=== PATIENT | male | born 1965 | race Caucasian/White ===

== ENCOUNTER 2018-04-28 20:28 | Emergency (ER) | payer OTHER ==
[2018-04-28 22:43] LABS: APPEARANCE,URINE CLOUDY; BILIRUBIN,URINE NEGATIVE (NEGATIVE); GLUCOSE, URINE NEGATIVE (NEGATIVE); KETONES,URINE NEGATIVE (NEGATIVE); LEUKOCYTE ESTERASE,URINE NEGATIVE (NEGATIVE); NITRITE,URINE NEGATIVE (NEGATIVE); PROTEIN,URINE 100 mg/dL (NEGATIVE); URINE SPECIFIC GRAVITY 1.026; UROBILINOGEN,URINE NEGATIVE mg/dL (<2.0)
[2018-04-28 22:44] LABS: COLOR,URINE DARK YELLOW
--- NOTE | 2018-04-29 00:07 | ER Document Report ---
ED General - General Chief Complaint: Urinary Problem Stated Complaint: BLOOD PRESSURE ISSUE Time Seen by Provider: 04/28/18 21:59 Notes: Patient is a 52-year-old male with a past medical history of hypertension, currently off all medications, daily smoker who presents with gross hematuria that started approximately 12 hours ago and has been ongoing since that time. Patient denies any symptoms beyond gross hematuria. He does however note that he has had some mild left testicular pain intermittently with associated swelling intermittently for the past 1 year ever since he had a hydrocele repair done but that this is not new or different today. The gross hematuria has been present each time that he has urinated. He denies any flank tenderness, lower abdominal tenderness, fever, nausea or vomiting. Nothing improves or worsens his symptoms. No penile trauma. He has not seen his primary care physician regarding today's concerns. No history of kidney or bladder malignancy. TRAVEL OUTSIDE OF THE [place] IN LAST 30 DAYS: No - Related Data Allergies/Adverse Reactions: hydromorphone [From Dilaudid] Adverse Reaction (Verified 04/28/18 20:33) Vomiting Past Medical History - General Information source: Patient - Social History Smoking Status: Current Every Day Smoker Chew tobacco use (# tins/day): No Frequency of alcohol use: Rare Drug Abuse: None Lives with: Spouse/Significant other Family History: Reviewed & Not Pertinent Patient has suicidal ideation: No Patient has homicidal ideation: No - Past Medical History Cardiac Medical History: Reports: Hx Hypercholesterolemia Renal/ Medical History: Denies: Hx Peritoneal Dialysis GI Medical History: Reports: Hx Hiatal Hernia Review of Systems - Review of Systems Notes: Constitutional: Negative for fever. HENT: Negative for sore throat. Eyes: Negative for visual changes. Cardiovascular: Negative for chest pain. Respiratory: Negative for shortness of breath. Gastrointestinal: Negative for abdominal pain, vomiting or diarrhea. Genitourinary: Positive for gross hematuria Musculoskeletal: Negative for back pain. Skin: Negative for rash. Neurological: Negative for headaches, weakness or numbness. 10 point ROS negative except as marked above and in HPI. Physical Exam - Vital signs Vitals: Temp Pulse Resp BP Pulse Ox 98.0 F 94 16 204/121 H 98 04/28/18 21:00 04/28/18 21:00 04/28/18 21:00 04/28/18 21:00 04/28/18 21:00 Interpretation: Hypertensive - Patient is off all medications currently and has a known history of essential hypertension Notes: PHYSICAL EXAMINATION: GENERAL: Well-appearing, well-nourished and in no acute distress. HEAD: Atraumatic, normocephalic. EYES: Pupils equal round and reactive to light, extraocular movements intact, sclera anicteric, conjunctiva are normal. ENT: nares patent, oropharynx clear without exudates. Moist mucous membranes. NECK: Normal range of motion, supple without lymphadenopathy LUNGS: Breath sounds clear to auscultation bilaterally and equal. No wheezes rales or rhonchi. HEART: Regular rate and rhythm without murmurs : No penile lesions or active bleeding from the urethral meatus. Positive cremasteric reflex bilaterally. There is an area of firmness and swelling above the left testicle that is mildly tender to palpation which patient notes is chronic in nature. ABDOMEN: Soft, nontender, normoactive bowel sounds. No guarding, no rebound. No masses appreciated. EXTREMITIES: Normal range of motion, no pitting or edema. No cyanosis. NEUROLOGICAL: No focal neurological deficits. Moves all extremities spontaneously and on command. PSYCH: Normal mood, normal affect. SKIN: Warm, Dry, normal turgor, no rashes or lesions noted. Course - Re-evaluation Re-evalutation: 04/29/18 00:06 Patient presents with painless gross hematuria. Urinalysis without any evidence of associated infection. Patient does have an elevated risk for bladder and renal malignancies given his long-standing smoking history. Low clinical suspicion for an acute nephrolithiasis or urolithiasis given absence of any pain. Will proceed with CT abdomen pelvis to definitively exclude any renal masses or otherwise asymptomatic nephrolithiasis. I have informed patient that he will likely require cystoscopy for definitive exclusion of a bladder mass. 04/29/18 01:34 CT scan of the abdomen and pelvis without any evidence of acute renal masses or nephrolithiasis. Patient continues to be without any pain. The remainder of the additional labs are otherwise unremarkable. I have advised that he follow- up with urology for cystoscopy and follow-up of his gross hematuria at his earliest ability. At this time will discharge with return precautions and follow-up recommendations. Verbal discharge instructions given a the bedside and opportunity for questions given. Medication warnings reviewed. Patient is in agreement with this plan and has verbalized understanding of return precautions and the need for primary care follow-up in the next 24-72 hours. - Vital Signs Vital signs: Temp Pulse Resp BP Pulse Ox 98.0 F 94 16 185/117 H 94 04/28/18 21:00 04/28/18 21:00 04/28/18 21:00 04/29/18 00:01 04/29/18 00:16 - Laboratory Result Diagrams: 04/29/18 00:05 04/29/18 00:05 Laboratory results interpreted by me: 04/28/18 04/29/18 04/29/18 22:15 00:05 00:05 WBC 13.9 H MCH 33.5 H BUN 25 H Urine Protein 100 H Urine Blood LARGE H - Diagnostic Test Radiology reviewed: Reports reviewed Discharge - Discharge Clinical Impression: Essential hypertension, Gross hematuria, Tobacco abuse Condition: Good Disposition: HOME, SELF-CARE Additional Instructions: Your seen today for gross hematuria which is seen blood in your urine. We have been unable to identify the exact cause of why you are doing this. You need to follow-up with urology for a cystoscopy for further evaluation. Today your blood work and CT scan are normal. Please return if you develop fever of greater than 100.4 F, began to develop abdominal or flank pain, become unable to urinate, pass out, or have any other symptoms that are worrisome to you.
[2018-04-29 00:21] LABS: HEMATOCRIT 43.8 % (37.9-51.0); HEMOGLOBIN 15.4 g/dL (13.5-17.0); MEAN CORPUSCULAR HEMOGLOBIN 33.5 pg (27.0-33.4); MEAN CORPUSCULAR HGB CONC 35.3 g/dL (32.0-36.0); MEAN CORPUSCULAR VOLUME 95 fl (80-97); PLATELET COUNT 229 10^3/uL (150-450); RED BLOOD COUNT 4.61 10^6/uL (4.35-5.55); WHITE BLOOD COUNT 13.9 10^3/uL (4.0-10.5)
[2018-04-29 00:38] LABS: ANION GAP 6 (5-19); BLOOD UREA NITROGEN 25 mg/dL (7-20); CALCIUM 9.5 mg/dL (8.4-10.2); CARBON DIOXIDE 29 mmol/L (22-30); CHLORIDE 106 mmol/L (98-107); GLUCOSE 100 mg/dL (75-110); POTASSIUM 3.8 mmol/L (3.6-5.0); SODIUM 141.1 mmol/L (137-145)
--- NOTE | 2018-04-29 01:21 | RADIOLOGY REPORT (SQ) ---
EXAM DESCRIPTION: CT ABDOMEN PELVIS WITH IV CONTRAST COMPLETED DATE/TME: 04/28/2018 23:26 CLINICAL HISTORY: 52 years, Male, gross hematuria COMPARISON: None. TECHNIQUE: 488 Images stored on PACS. All CT scanners at this facility use dose modulation, iterative reconstruction, and/or weight based dosing when appropriate to reduce radiation dose to as low as reasonably achievable (ALARA). [facility]: Dose Right [facility]: CareDose [facility]: Dose Right [facility]: Teradose 4D [facility]: [place] Appraisals LIMITATIONS: None. FINDINGS: Limited evaluation of the lung bases is unremarkable. Osseous structures are grossly intact. Fatty infiltrative change to the liver. The spleen, adrenal glands, pancreas, kidneys are unremarkable. The gallbladder is present. Large amount stool in the colon. No gross evidence for bowel obstruction. Normal appendix. No free air or free fluid. Mild atheromatous change. IMPRESSION: Fatty infiltrative change to the liver. Abundant stool in the colon. Mild atheromatous change TECHNICAL DOCUMENTATION: Quality ID # [id number]: Final reports with documentation of one or more dose reduction techniques (e.g., Automated exposure control, adjustment of the mA and/or kV according to patient size, use of iterative reconstruction technique) copyright 2010 [employer]- All Rights Reserved
[2018-04-29 01:54] VITALS: BP 181/110
== END 2018-04-29 01:54 | disposition home or self-care (01) ==
LOC: ER 20:28
DX: R31.0 Gross hematuria (principal); I10 Essential (primary) hypertension; N50.812 Left testicular pain; R22.2 Localized swelling, mass and lump, trunk; F17.200 Nicotine dependence, unspecified, uncomplicated; Z98.890 Other specified postprocedural states
CPT/HCPCS: 36415; 74177; 80048; 81001; 85027; 87086; 99284